=== PATIENT | male | born 1955 | race Caucasian/White ===

== ENCOUNTER 2017-07-02 11:56 | Inpatient (IN) | payer MEDICARE ==
[2017-07-02] VITALS (9 sets, daily range): BP systolic 94–122; BP diastolic 62–81
[~2017-07-02] VITALS: Ht 175.3 cm; Wt 76.2 kg
--- NOTE | ~2017-07-02 | EC ---
PATIENT:ALEXIS FORDE DATE OF SERVICE: 07/02/17 SEX: M MEDICAL RECORD: [id number] DATE OF : 59 LOCATION:[facility] AGE OF PATIENT: 61 ADMISSION DATE: 07/02/17 REFERRING PHYSICIAN: INTERPRETING PHYSICIAN: GEMA GARCIA MD ECHOCARDIOGRAM REPORT ECHO CHARGES 4 ECHO COMPLETE CLINICAL DIAGNOSIS: SEVERE BURN TO LEFT FOOT HX OF HTN ECHOCARDIOGRAPHIC MEASUREMENTS (adult normal given) AC root (d.<3.7cm) 3.5 cm LV Septum d (<1.2 cm> 1.0 cm Valve Excursion 1.5 cm LV Septum (systole) 1.4 cm Left Atria (s.<4.0cm> 3.3 cm LVPW d(<1.2cm) 1.4 cm RV (d.<2.3cm) 3.8 cm LVPW (sytole) 1.7 cm LV diastole(<5.6CM) 5.0 cm MV E-F(>70mm/sec) cm LV systole 3.6 cm LVOT Diameter 1.8 cm MV exc.(>10mm) 1.1 cm Est.ejection fraction (50-75%) % Pericardial Effusion N DOPPLER: LVIT cm/sec A 80.0 cm/sec E 66.0 cm/sec LA cm/sec RVSP 27 mmHg LVOT 142 cm/sec AOP1/2T m/s Asc. Ao 195 cm/sec RVOT 102 cm/sec RA cm/sec PA 149 cm/sec AV Gradient Peak 15.18mmHg AV Mean 7.06 mmHg AV Area 2.2 cm MV Gradient Peak 2.87 mmHg MV Mean 1.51 mmHg MV Area cm COMMENTS: Global Safety Officer: Joanna BLANCAS [place]t [place]yer: 2 Dr. Riley TAPE# PACS DATE OF SERVICE: 07/03/2017 Echocardiogram FINDINGS: 1. Left ventricular chamber size is within normal limits. Left ventricular systolic function is normal. Overall ejection fraction estimated at 55%. 2. Left atrium, right atrium, and right ventricular chamber sizes are within normal limits. 3. Valvular structures have normal structure and motion. ECHOCARDIOGRAM REPORT [id number] ALEXIS FORDE 4. Doppler interrogation only reveals trace tricuspid regurgitation, no other valvular insufficiency or stenosis. 5. No evidence of pericardial effusion or left ventricular thrombus. 6. 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 TRANSINT:[id number] Voice Confirmation ID: [id number] DOCUMENT ID: [id number] GEMA GARCIA MD at 1148 CC: [id number] DICTATION DATE: 07/03/17 1310 LENS GENERATOR: 07/03/17 1322 DIS IN 07/10/17 [facility] [address] [id number]
[~2017-07-02 11:56] MED LIST: BACTRIM DS TABL1 TAB PO
[2017-07-02 13:33] LABS: BASOPHILS 0.7 % (0-2); EOSINOPHILS 3.2 % (0-7); HEMATOCRIT 44.1 % (42.0-54.0); HEMOGLOBIN 14.2 g/dL (13.5-17.5); IMMATURE GRANULOCYTES 1.2 % (0-5); LYMPHOCYTES 15.8 % (15-50); MCH 29.5 pg (26.0-34.0); MCHC 32.2 g/dL (31.0-37.0); MCV 91.5 fL (80.0-100.0); MEAN PLATELET VOLUME 10.3 fL (7.4-10.4); MONOCYTES 6.8 % (2-11); NEUTROPHILS 72.3 % (40-80); PLATELET COUNT 412 10x3/uL (130-400); RBC 4.82 10x6/uL (4.20-6.10); RDW 13.6 % (11.5-14.5); WBC 8.9 10x3/uL (4.8-10.8)
[2017-07-02 13:46] LABS: INR 1.01 (0.85-1.17); PROTIME 12.9 SECONDS (11.6-15.0)
[2017-07-02 13:58] LABS: ALBUMIN 2.7 g/dL (3.4-5.0); BILIRUBIN - TOTAL 0.28 mg/dL (0.2-1.3); CALCIUM 9.4 mg/dL (8.5-10.1); CARBON DIOXIDE 25.3 mmol/L (21.0-32.0); CREATININE - SERUM 1.5 mg/dL (0.6-1.3); POTASSIUM - SERUM 5.5 mmol/L (3.5-5.1); PROTEIN - SERUM 8.4 g/dL (6.4-8.2)
[2017-07-02 14:04] LABS: ANION GAP 12.2 mmol/L (8-16)
[2017-07-02 14:45] LABS: APPEARANCE CLEAR (CLEAR); BILIRUBIN NEGATIVE (NEGATIVE); COLOR YELLOW (YELLOW); GLUCOSE 1000 mg/dL (NEGATIVE); KETONE NEGATIVE (NEGATIVE); NITRITE NEGATIVE (NEGATIVE); PROTEIN TRACE mg/dL (NEGATIVE); UROBILINOGEN NORMAL (NORMAL)
[2017-07-02 16:09] LABS: UDS - AMPHET POSITIVE QUAL (NEGATIVE); UDS - BARB NEGATIVE QUAL (NEGATIVE); UDS - BENZO NEGATIVE QUAL (NEGATIVE); UDS - COCAINE NEGATIVE QUAL (NEGATIVE); UDS - OPIATE POSITIVE QUAL (NEGATIVE); UDS - PCP NEGATIVE QUAL (NEGATIVE); UDS - THC NEGATIVE QUAL (NEGATIVE)
[2017-07-02] MEDS ORDERED: CARDIZEM CD360 MG PO (17:48)
[2017-07-02] MEDS ORDERED: HUMALOG 30100 UNITS/ SC (17:49)
[2017-07-02] MEDS ORDERED: HYDROCODONE-APA1 TAB PO (18:06)
[2017-07-03] VITALS (24 sets, daily range): BP systolic 107–151; BP diastolic 59–91; BMI 24.2
[2017-07-03 06:28] LABS: BASOPHILS 0.8 % (0-2); EOSINOPHILS 2.5 % (0-7); HEMATOCRIT 38.7 % (42.0-54.0); LYMPHOCYTES 22.3 % (15-50); MCH 29.2 pg (26.0-34.0); MCHC 33.6 g/dL (31.0-37.0); MONOCYTES 5.7 % (2-11); NEUTROPHILS 67.7 % (40-80); PLATELET COUNT 382 10x3/uL (130-400); RBC 4.45 10x6/uL (4.20-6.10)
[2017-07-03 06:38] LABS: WBC 12.2 10x3/uL (4.8-10.8)
[2017-07-03 06:44] LABS: CALCIUM 8.6 mg/dL (8.5-10.1); CARBON DIOXIDE 26.4 mmol/L (21.0-32.0); CHLORIDE - SERUM 99 mmol/L (98-107); SODIUM 130 mmol/L (136-145)
[2017-07-03 06:49] LABS: CALC OSMOLALITY 263 mosm/kg (275-300); CREATININE - SERUM 0.9 mg/dL (0.6-1.3); GLUCOSE 95 mg/dL (74-106); UREA NITROGEN 22 mg/dL (7-18)
[2017-07-03 06:50] LABS: POTASSIUM - SERUM 3.8 mmol/L (3.5-5.1); eGFR NON AFRICAN AMERICAN > 90 mL/min (90-120)
[2017-07-03 11:01] LABS: HEMOGLOBIN A1C 13.8 % (4.8-6.0)
[2017-07-04] VITALS (15 sets, daily range): BP systolic 115–156; BP diastolic 63–93
[2017-07-04 07:59] LABS: BASOPHILS 0.7 % (0-2); EOSINOPHILS 3.7 % (0-7); HEMATOCRIT 39.9 % (42.0-54.0); HEMOGLOBIN 13.5 g/dL (13.5-17.5); IMMATURE GRANULOCYTES 1.2 % (0-5); LYMPHOCYTES 21.2 % (15-50); MCH 29.6 pg (26.0-34.0); MCHC 33.8 g/dL (31.0-37.0); MCV 87.5 fL (80.0-100.0); MEAN PLATELET VOLUME 9.8 fL (7.4-10.4); MONOCYTES 7.3 % (2-11); NEUTROPHILS 65.9 % (40-80); PLATELET COUNT 410 10x3/uL (130-400); RBC 4.56 10x6/uL (4.20-6.10); RDW 13.2 % (11.5-14.5); WBC 10.3 10x3/uL (4.8-10.8)
[2017-07-04 08:08] LABS: CALC OSMOLALITY 265 mosm/kg (275-300); CALCIUM 8.4 mg/dL (8.5-10.1); CARBON DIOXIDE 24.1 mmol/L (21.0-32.0); CHLORIDE - SERUM 101 mmol/L (98-107); CREATININE - SERUM 0.7 mg/dL (0.6-1.3); GLUCOSE 84 mg/dL (74-106); POTASSIUM - SERUM 3.7 mmol/L (3.5-5.1); SODIUM 134 mmol/L (136-145); eGFR NON AFRICAN AMERICAN > 90 mL/min (90-120)
[2017-07-04 08:12] LABS: UREA NITROGEN 11 mg/dL (7-18)
[2017-07-05] VITALS: BP 119/66
[2017-07-05 04:00] VITALS: BP 122/68
[2017-07-05 07:41] VITALS: BP 173/90
[2017-07-05 12:27] VITALS: BP 136/69
[2017-07-05 15:54] VITALS: BP 125/69
[2017-07-05 20:00] VITALS: BP 119/62
[2017-07-06] VITALS: BP 138/71
[2017-07-06 04:00] VITALS: BP 153/84
[2017-07-06 07:53] VITALS: BP 161/94
[2017-07-06 12:44] VITALS: BP 140/82
[2017-07-06 13:07] VITALS: Ht 175.3 cm; Wt 76.2 kg
[2017-07-06 15:56] VITALS: BP 140/79
[2017-07-06 20:00] VITALS: BP 107/62
[2017-07-07 04:00] VITALS: BP 157/73
[2017-07-07 09:06] VITALS: BP 169/93
[2017-07-07 09:36] LABS: BASOPHILS 0.8 % (0-2); EOSINOPHILS 4.4 % (0-7); HEMATOCRIT 39.9 % (42.0-54.0); HEMOGLOBIN 13.4 g/dL (13.5-17.5); IMMATURE GRANULOCYTES 0.5 % (0-5); LYMPHOCYTES 20.5 % (15-50); MCH 29.8 pg (26.0-34.0); MCHC 33.6 g/dL (31.0-37.0); MCV 88.9 fL (80.0-100.0); MEAN PLATELET VOLUME 10.4 fL (7.4-10.4); MONOCYTES 8.5 % (2-11); NEUTROPHILS 65.3 % (40-80); PLATELET COUNT 485 10x3/uL (130-400); RBC 4.49 10x6/uL (4.20-6.10); RDW 13.5 % (11.5-14.5)
[2017-07-07 09:41] LABS: ALBUMIN 2.3 g/dL (3.4-5.0); ALKALINE PHOSPHATASE 146 U/L (46-116); ALT (SGPT) 85 U/L (10-68); BILIRUBIN - TOTAL 0.15 mg/dL (0.2-1.3); CALC OSMOLALITY 276 mosm/kg (275-300); CALCIUM 8.5 mg/dL (8.5-10.1); CARBON DIOXIDE 26.4 mmol/L (21.0-32.0); CHLORIDE - SERUM 98 mmol/L (98-107); CREATININE - SERUM 0.9 mg/dL (0.6-1.3); POTASSIUM - SERUM 4.2 mmol/L (3.5-5.1); PROTEIN - SERUM 7.5 g/dL (6.4-8.2); SODIUM 132 mmol/L (136-145); UREA NITROGEN 11 mg/dL (7-18); eGFR NON AFRICAN AMERICAN > 90 mL/min (90-120)
[2017-07-07 09:58] LABS: GLUCOSE 324 mg/dL (74-106)
[2017-07-07] MEDS ORDERED: GLUCOPHAGE500 MG PO (11:04)
[2017-07-07] MEDS ORDERED: PROAIR HFA8.5 GM INH (11:06)
[2017-07-07] MEDS ORDERED: SYMBICORT 16010.2 GM INH (11:07)
[2017-07-07] MEDS ORDERED: LISINOPRIL10 MG PO (11:10)
[2017-07-07] MEDS ORDERED: NEURONTIN800 MG PO (11:11)
[2017-07-07] MEDS ORDERED: NAPROSYN500 MG PO (11:11)
[2017-07-07 13:22] VITALS: BP 124/41
[2017-07-07 17:29] VITALS: BP 140/84
[2017-07-07 20:00] VITALS: BP 146/76
[2017-07-08] VITALS: BP 149/73
[2017-07-08 04:00] VITALS: BP 123/74
[2017-07-08 06:21] LABS: ALBUMIN 2.7 g/dL (3.4-5.0); ALKALINE PHOSPHATASE 178 U/L (46-116); ALT (SGPT) 74 U/L (10-68); CALCIUM 9.4 mg/dL (8.5-10.1); CARBON DIOXIDE 27.9 mmol/L (21.0-32.0); CHLORIDE - SERUM 93 mmol/L (98-107); POTASSIUM - SERUM 3.9 mmol/L (3.5-5.1); PROTEIN - SERUM 8.2 g/dL (6.4-8.2); SODIUM 130 mmol/L (136-145); eGFR NON AFRICAN AMERICAN 81 mL/min (90-120)
[2017-07-08 06:43] LABS: CALC OSMOLALITY 282 mosm/kg (275-300); GLUCOSE 469 mg/dL (74-106); UREA NITROGEN 14 mg/dL (7-18)
[2017-07-08 07:00] LABS: HEMATOCRIT 40.2 % (42.0-54.0); HEMOGLOBIN 13.3 g/dL (13.5-17.5); LYMPHOCYTES 20.7 % (15-50); MCH 29.4 pg (26.0-34.0); MCHC 33.1 g/dL (31.0-37.0); MCV 88.9 fL (80.0-100.0); MEAN PLATELET VOLUME 10.3 fL (7.4-10.4); NEUTROPHILS 67.4 % (40-80); PLATELET COUNT 469 10x3/uL (130-400); RBC 4.52 10x6/uL (4.20-6.10); RDW 13.5 % (11.5-14.5); WBC 10.4 10x3/uL (4.8-10.8)
[2017-07-08 09:15] LABS: CA 19-9 282 U/mL (0-35); CEA 4.3 ng/mL (0.0-4.7)
[2017-07-08 09:28] VITALS: BP 154/48
[2017-07-08 11:28] LABS: INR 1.06 (0.85-1.17); PROTIME 13.4 SECONDS (11.6-15.0)
[2017-07-08 12:41] VITALS: BP 155/44
[2017-07-08 16:13] LABS: HEPATITIS C ANTIBODY >11.0 (0.0-0.9)
[2017-07-08 16:39] VITALS: BP 141/44
[2017-07-08 20:00] VITALS: BP 155/83
[2017-07-09] VITALS (7 sets, daily range): BP systolic 104–188; BP diastolic 61–96
[2017-07-09 06:03] LABS: BASOPHILS 1.1 % (0-2); EOSINOPHILS 6.2 % (0-7); HEMATOCRIT 38.7 % (42.0-54.0); HEMOGLOBIN 12.6 g/dL (13.5-17.5); IMMATURE GRANULOCYTES 0.8 % (0-5); LYMPHOCYTES 22.1 % (15-50); MCH 29.1 pg (26.0-34.0); MCHC 32.6 g/dL (31.0-37.0); MCV 89.4 fL (80.0-100.0); MEAN PLATELET VOLUME 10.4 fL (7.4-10.4); MONOCYTES 10.9 % (2-11); NEUTROPHILS 58.9 % (40-80); PLATELET COUNT 464 10x3/uL (130-400); RBC 4.33 10x6/uL (4.20-6.10); RDW 13.4 % (11.5-14.5); WBC 9.3 10x3/uL (4.8-10.8)
[2017-07-09 06:43] LABS: ALBUMIN 2.4 g/dL (3.4-5.0); ALKALINE PHOSPHATASE 133 U/L (46-116); ALT (SGPT) 67 U/L (10-68); BILIRUBIN - TOTAL 0.23 mg/dL (0.2-1.3); CALCIUM 8.8 mg/dL (8.5-10.1); CARBON DIOXIDE 26.2 mmol/L (21.0-32.0); CHLORIDE - SERUM 97 mmol/L (98-107); POTASSIUM - SERUM 3.5 mmol/L (3.5-5.1); PROTEIN - SERUM 7.5 g/dL (6.4-8.2); SODIUM 134 mmol/L (136-145)
[2017-07-09 06:48] LABS: CALC OSMOLALITY 276 mosm/kg (275-300); CREATININE - SERUM 0.7 mg/dL (0.6-1.3); GLUCOSE 278 mg/dL (74-106); UREA NITROGEN 10 mg/dL (7-18); eGFR NON AFRICAN AMERICAN > 90 mL/min (90-120)
[2017-07-10 04:00] VITALS: BP 129/67
[2017-07-10 04:46] LABS: BASOPHILS 1.5 % (0-2); EOSINOPHILS 4.4 % (0-7); HEMATOCRIT 36.8 % (42.0-54.0); HEMOGLOBIN 12.3 g/dL (13.5-17.5); LYMPHOCYTES 22.1 % (15-50); MCH 29.9 pg (26.0-34.0); MCHC 33.4 g/dL (31.0-37.0); MCV 89.5 fL (80.0-100.0); MEAN PLATELET VOLUME 10.2 fL (7.4-10.4); MONOCYTES 11.4 % (2-11); NEUTROPHILS 59.6 % (40-80); PLATELET COUNT 423 10x3/uL (130-400); RBC 4.11 10x6/uL (4.20-6.10); RDW 13.6 % (11.5-14.5); WBC 9.3 10x3/uL (4.8-10.8)
[2017-07-10 05:07] LABS: ALBUMIN 2.3 g/dL (3.4-5.0); ALKALINE PHOSPHATASE 134 U/L (46-116); ALT (SGPT) 71 U/L (10-68); BILIRUBIN - TOTAL 0.29 mg/dL (0.2-1.3); CALCIUM 8.7 mg/dL (8.5-10.1); CARBON DIOXIDE 25.6 mmol/L (21.0-32.0); CHLORIDE - SERUM 99 mmol/L (98-107); CREATININE - SERUM 0.7 mg/dL (0.6-1.3); POTASSIUM - SERUM 3.5 mmol/L (3.5-5.1); PROTEIN - SERUM 7.1 g/dL (6.4-8.2); SODIUM 135 mmol/L (136-145); UREA NITROGEN 11 mg/dL (7-18); eGFR NON AFRICAN AMERICAN > 90 mL/min (90-120)
[2017-07-10 05:10] LABS: CALC OSMOLALITY 272 mosm/kg (275-300); GLUCOSE 167 mg/dL (74-106)
[2017-07-10 09:30] VITALS: BP 132/81
[2017-07-10] MEDS ORDERED: NICODERM C1 PATCH .3 TRANSDERM (11:24)
[2017-07-10] MEDS ORDERED: LEVEMIR100 U/M1 SC (11:25)
[2017-07-10 12:40] VITALS: BP 134/79
== END 2017-07-10 13:03 | disposition home or self-care (01) | DRG 935 ==
LOC: D.ER 11:56 → D.ICU 15:27 → D.MS 15:27
PROVIDERS: Emergency Medicine; Internal Medicine Hematology & Oncology; Internal Medicine Nephrology; Nurse Practitioner Family; Radiology Diagnostic Radiology; Surgery
DX: T25.022A Burn of unspecified degree of left foot, initial encounter (principal); I82.220 Acute embolism and thrombosis of inferior vena cava; L03.116 Cellulitis of left lower limb; E87.1 Hypo-osmolality and hyponatremia; I82.1 Thrombophlebitis migrans; C22.8 Malignant neoplasm of liver, primary, unspecified as to type; C78.00 Secondary malignant neoplasm of unspecified lung; I82.402 Acute embolism and thrombosis of unspecified deep veins of left lower extremity; S91.302A Unspecified open wound, left foot, initial encounter; X16.XXXA Contact with hot heating appliances, radiators and pipes, initial encounter; Z91.19 Patient's noncompliance with other medical treatment and regimen; E11.65 Type 2 diabetes mellitus with hyperglycemia; F15.10 Other stimulant abuse, uncomplicated; I10 Essential (primary) hypertension; T31.0 Burns involving less than 10% of body surface; E11.51 Type 2 diabetes mellitus with diabetic peripheral angiopathy without gangrene; B19.20 Unspecified viral hepatitis C without hepatic coma; Z72.0 Tobacco use